=== PATIENT | female | born 1960 | race Caucasian/White ===

== ENCOUNTER 2023-10-23 13:36 | Outpatient (AMB) | payer BC, SELFPAY ==
--- NOTE | 2023-10-23 13:37 | A.SPINEOV_ITS ---
Intake Visit Reasons: lower back pain Intake Note: Ms. Aragon is here today c/o of low back pain. Senior Dot Net Developer Required: No Assessment & Plan Assessment & Plan (1) Lumbar radiculopathy: Code(s): M54.16 - Radiculopathy, lumbar region Category: Medical Plan Dear AHMET Rabago, Thank you for referring Srinivasan to our office today. She is a pleasant 63-year-old female who comes in today with a chief complaint of low back pain with shooting pains into her right lower extremity. She states that these symptoms have been ongoing since March of 2023 without any inciting incident she is able to identify. When describing her right-sided shooting pains she runs her hand over her posterior buttocks down the lateral aspect of her tibialis into the top of her foot. She states that the pain is not always present but is more so ?waxing and waning.? She feels that sitting exacerbates her pain and standing/walking helps to alleviate her pain. She does feel as though this pain is worsening, and states it affects her lower half of her leg and foot more than it did previously. She reports associated symptoms of numbness/tingling/burning that accompany her shooting pains. She reports some pain limiting activity and states that she finds herself sitting around her home more as she does not want to remain active and risk causing more pain to herself. She has also reduced the amount she is driving. She feels she has at the point where she is completely miserable and is pain all throughout the day. She feels she can not live like this any longer and need some kind of intervention in order to resolve her symptoms. PMH: Reconstructive breast surgery. No other disclosed medical history. Social hx: Patient does not smoke, reports no substance use. Medications: Recently started on Percocet (short course) by primary care physician for pain. Allergies: NKDA. Physical exam: The patient has 4/5 strength with right-sided dorsiflexion, the rest of her strength is 5/5 intact. She reports no constant sensational deficits. Her reflexes are 2+ intact diffusely. She is able to rise from a seated position without assistance of a chair, in ambulates relatively well with only a very slight antalgic gait favoring the left side. Imaging review: MRI of the lumbar spine completed at [facility] shows a synovial cyst at L4-5 causing effacement of the right exiting L5 nerve root, with some central canal involvement. Impression: Srinivasan is a pleasant 63-year-old female who comes in today with a chief complaint of low back pain with right lower extremity shooting pains. These are accompanied by numbness/tingling/burning. She reports that this began without inciting incident in March of 2023. Overall, she states that she is ?miserable? and needs to have something done in order to fix this issue. Her symptoms are in a classic right-sided L5 nerve root distribution. I discussed the possibility of a right-sided L5 synovial cyst resection, and extensively explained what a surgery such as this would entail. She was informed that I will review this case with the attending neurosurgeon Dr. Vogel to see if there any interventions he is willing to offer her. I will call her back after Dr. Vogel has returned from vacation I am able to review some cases with him. She understands and agrees to this plan. Thank you for allowing us to care for your patient. The total time spent with this visit with this patient was 45 minutes reviewing history, physical exam, MRI imaging review, and implementation of treatment plan or further diagnostic testing Cesar Vogel MD,PhD [facility] Coding Level of Care Code New Pt Level 4 (46749) Diagnoses Lumbar radiculopathy M54.16
== END 2023-10-23 14:39 | disposition home or self-care (01) ==
PROVIDERS: PCP Physician Assistant; Referring Provider Physician Assistant; Visit Provider Physician Assistant
DX: M54.16 Radiculopathy, lumbar region (principal)
CPT/HCPCS: 99204

== ENCOUNTER → 2023-10-23 13:36 | Outpatient (BNVA) | payer BC, SELFPAY | PROVIDERS: PCP Physician Assistant; Visit Provider Physician Assistant ==

== ENCOUNTER 2023-12-04 09:08 | Day surgery (SDC) | payer BC, SELFPAY ==
[2023-11-26 12:12] VITALS: BMI 29.5
--- NOTE | 2023-12-03 08:45 | P.CONAN_ITS ---
Documented by User: Jenifer Tran NP 12/03/23 08:50 HPI - Anesthesia Eval Consult details Narrative: 63yo F for L4-5 Decompression and L5 Synovial Cyst Resection Medically optimized per PCP Follows [facility] Cardiology for htn. Last office visit 07/2023, stable for one year f/u [facility] Active Problems Active Problems: All Active Problems Lumbar radiculopathy (Acute) Past Medical History Medical History (Updated 11/26/23 @ 11:55 by Ina Mix RN) Hx of radiation therapy Breast cancer Back pain Diverticulosis of jejunum without diverticulitis Migraine Anxiety and depression Breast lump in female Breast neoplasm Thyroid nodule Overweight HTN (hypertension) Hypokalemia Surgical History Surgical History (Updated 11/26/23 @ 11:57 by Ina Mix RN) History of facelift History of rhinoplasty H/O colonoscopy History of lumpectomy of right breast Hx of hysterectomy Hx of breast reconstruction Social History Social History Are you a primary career professional to a significant other at home: No Do you presently have visiting nurse or other home services: No Patient Tobacco Use Status: Never used Tobacco Use of substances other than those prescribed or required for medical reasons: No Have you been hit, kicked, punched, or otherwise hurt by someone within the past year? If so, by whom?: No Are you DNR?: No Advance Directives: No Advance Directives Information Provided: Yes Advance Directives on File: No Recently lost weight without trying: No Eating poorly because of decreased appetite: No Nutrition Risks: No Nutritional Risk Patient : No : No Poor oral hygiene: Yes (upper and lower bridge) Meds Allergies Allergy/AdvReac Type Severity Reaction Status Date / Time No Known Allergies Allergy Verified 11/26/23 09:11 Home Medications ?Medication ?Instructions ?Recorded ?Confirmed ?Last Taken ?Type ascorbic acid (vitamin C) 250 mg 750 mg PO DAILY 11/26/23 11/26/23 Unknown History chewable tablet cyclobenzaprine 5 mg tablet 5 mg PO Q4-8H PRN muscle spasm 11/26/23 11/26/23 Unknown History ibuprofen 600 mg tablet 600 mg PO QID 11/26/23 11/26/23 Unknown History lisinopril 30 mg tablet 30 mg PO DAILY 11/26/23 11/26/23 Unknown History lorazepam 0.5 mg tablet 0.5 mg PO Q8H PRN anxiety 11/26/23 11/26/23 Unknown History sumatriptan succinate 100 mg tablet 100 mg PO DIRECTED 11/26/23 11/26/23 Unknown History tramadol 50 mg tablet 50 mg PO BID PRN Pain 11/26/23 11/26/23 Unknown History Exam Height,Weight and Vital Signs: Height 5 ft 5 in Weight 80.286 kg Narrative Narrative: EKG 11/2023 NSR per clearance note ECHO 2021 1. LV size is nml 2. LV wall thickness is nml 3. Overall LV sys function is nml with EF 60-65% 4. Diastolic filling pattern is nml 5. No evidence of WMA 6. LA size is upper limits of nml 7. RV sys function is nml 8. No 9. Mild MR 10. No pulmo htn 11. No change from 2019 Assessment and Plan Assessment Anesthesia Assessment: Chart Reviewed Documented by User: Satya Phelps MD 12/04/23 12:32 [facility] Past Medical History Medical History (Updated 11/26/23 @ 11:55 by Ina Mix, RN) Hx of radiation therapy Breast cancer Back pain Diverticulosis of jejunum without diverticulitis Migraine Anxiety and depression Breast lump in female Breast neoplasm Thyroid nodule Overweight HTN (hypertension) Hypokalemia Cognitive capacity: o Family History Family history of problems with anesthesia: No Surgical History Surgical History (Updated 11/26/23 @ 11:57 by Ina Mix, RN) History of facelift History of rhinoplasty H/O colonoscopy History of lumpectomy of right breast Hx of hysterectomy Hx of breast reconstruction History of Problems with Anesthesia: Yes (PONV) Social History Social History Are you a primary career professional to a significant other at home: No Do you presently have visiting nurse or other home services: No Patient Tobacco Use Status: Never used Tobacco Use of substances other than those prescribed or required for medical reasons: No Have you been hit, kicked, punched, or otherwise hurt by someone within the past year? If so, by whom?: No Are you DNR?: No Advance Directives: No Advance Directives Information Provided: Yes Advance Directives on File: No Recently lost weight without trying: No Eating poorly because of decreased appetite: No Nutrition Risks: No Nutritional Risk Patient : No : No Poor oral hygiene: Yes (upper and lower bridge) Meds Allergies Allergy/AdvReac Type Severity Reaction Status Date / Time No Known Allergies Allergy Verified 11/26/23 09:11 Home Medications ?Medication ?Instructions ?Recorded ?Confirmed ?Last Taken ?Type ascorbic acid (vitamin C) 250 mg 750 mg PO DAILY 11/26/23 11/26/23 Unknown History chewable tablet cyclobenzaprine 5 mg tablet 5 mg PO Q4-8H PRN muscle spasm 11/26/23 11/26/23 Unknown History ibuprofen 600 mg tablet 600 mg PO QID 11/26/23 11/26/23 Unknown History lisinopril 30 mg tablet 30 mg PO DAILY 11/26/23 11/26/23 Unknown History lorazepam 0.5 mg tablet 0.5 mg PO Q8H PRN anxiety 11/26/23 11/26/23 Unknown History sumatriptan succinate 100 mg tablet 100 mg PO DIRECTED 11/26/23 11/26/23 Unknown History tramadol 50 mg tablet 50 mg PO BID PRN Pain 11/26/23 11/26/23 Unknown History Exam Airway Mallampati Class: I TM Dist: <=3cm Neck ROM: Full Loose/Missing/Broken Teeth: No Heart: ok Lungs: ok Other: Having severe sciatic pain now. I gave her Dilaudid 1mg IVP at 1226 w excellent relief. Assessment and Plan Assessment Anesthesia Assessment: Anesthesia Plan Discussed Final Anesthetic Review Family History of Problems with Anesthesia: No History of Problems with Anesthesia: Yes (PONV) NPO: Yes ASA Class: II Final Preanesthetic Review: No Changes in Pt Med Stat, Meds/Allgs Chart Reviewed, Consent Obtained/Reviewed and Anes Risks/Benef Reviewed Patient Risk: Intermediate Procedure Risk: Intermediate Anesthetic Plan Anesthetic Plan: GA and Agree w/ Assess. and Plan Disposition: Standard PACU
[2023-12-04] VITALS (9 sets, daily range): BP systolic 103–125; BP diastolic 54–89; PULSE 61–84; RESP 14–16; TEMP 36.1–36.6; O2SAT 92–100; BMI 29.1
--- NOTE | ~2023-12-04 | FL_ITS ---
EXAMINATION: XR FLUOROSCOPY WITH IMAGES CLINICAL INFORMATION: Right L4-5 decompression. Radiculopathy. COMPARISON: None available. TECHNIQUE: Fluoroscopy provided to: Dr. Vogel Fluoroscopy time: 0.0 minutes DAP: 0.246 Gycm2 Images: 2 FINDINGS: 2 coned-down spot images lower lateral lumbar spine demonstrate needle localizer at L4-5 facet level, and operative probe in place overlying right lamina same level. FL/FL guidance in OR IMPRESSION: Fluoroscopic guidance. Please refer to the full operative report for details. Electronically signed by: Yasmany Lopez MD 01/29/2024 03:39 PM EDT
--- NOTE | 2023-12-04 07:39 | P.DS_ITS ---
DS: Providers Provider Date of Service: 12/04/23 Date of discharge: 12/04/23 Primary care physician: Simran Dominguez MD Admitting clinician: Te Vogel DS: Diagnosis Discharge Diagnosis (1) Lumbar radiculopathy: Status: Acute DS: Summary Time Attestation Discharge Coordination Time (in mins): 5 Quality: Safe Use of Opioids Does Pt have an Active Cancer Diagnosis on the Problem List?: No Quality: Stroke Does the patient have a stroke diagnosis?: No Physical Exam Vital Signs: Vital Signs: BMI result Body Mass Index 29.5 Discharge Plan Discharge Patient Disposition: Home, Self-Care Referrals: Simran Dominguez MD [Primary Care Provider] - 1 Week Discharge Medications: New docusate sodium [Colace] 100 mg capsule 100 mg PO BID Qty: 20 0RF oxycodone 5 mg tablet 5 mg PO Q4H PRN (Reason: pain) Qty: 20 0RF Rx Instructions: Partial Fill upon patient request. Continued sumatriptan succinate 100 mg tablet 100 mg PO DIRECTED lorazepam 0.5 mg tablet 0.5 mg PO Q8H PRN (Reason: anxiety) ascorbic acid (vitamin C) 250 mg Tablet,Chewable 750 mg PO DAILY lisinopril 30 mg tablet 30 mg PO DAILY ibuprofen 600 mg tablet 600 mg PO QID cyclobenzaprine 5 mg tablet 5 mg PO Q4-8H PRN (Reason: muscle spasm) tramadol 50 mg Tablet 50 mg PO BID PRN (Reason: Pain) Discharge Orders: Discharge Order (Routine); Ordered 12/04/23 Ordered By: Shaheen Agee Diet: Advance to usual diet Activity on Discharge: As tolerated Activity Restrictions/Additional Instructions: After your spinal surgery we ask you to observe the following restr ictions/guidelines: Activity: It is normal to feel some discomfort as you increase your activity, but that will improve with time. We ask you avoid heavy lifting or acitivities that cause pain. As a general rule, 8lbs is a safe limit for lifting right after surgery. Walk as much as you feel comfortable but not to exhaustion. You will feel extra tired the first few days after surgery. Stay well hydrated. It is OK to walk up and down stairs You may return to driving when you are off narcotics (such as vicodin, oxycodone, dilaudid, etc), and you are back to normal functional capacity. If you have any concerns please check with office before driving. Return to work is specific to each patient and each surgery, so please speak with your doctor/PA at first follow up. Please bring paperwork such as FMLA at that time if you need it filled out. Medications: For optimum pain control, it is best to start with a combination of 500 mg of Tylenol every 4 hours with 600 mg of Motrin every 8 hours, and use narcotics as needed in between for breakthrough pain. We will give you a short supply of narcotics after surgery (usually one weeks worth). If you need more please call the office but do not use more than prescribed. You will need to give our office 48 hours notice if you need narcotics refilled and we do not fill narcotics on weekends or evenings. If you are on a narcotic, it is a good idea to take a stool softener such as colace or senna to avoid constipation If you take blood thinner such as aspirin, Plavix, Coumadin, Effient, Eliquis etc for conditions such as Afib, DVT, Pulmonary embolus, coronary disease, stents etc please speak with your surgeon about specific details as to when you can resume these medications. You can resume NSAIDs on post op day 1 (eg: Motrin, Naproxen, etc). Follow up: Please call the office, , after surgery to arrange a 3 week follow up for wound check. Wound Care: You may remove your dressing on the first day after surgery. ?You may ?leave open to air. Please do not remove the steri strips underneath. they will fall off on their own in one week. IT IS NORMAL FOR THE WOUND TO OOZE OR BE BLOODY FOR A FEW DAYS AFTER SURGERY. ?IF THIS HAPPENS JUST PLACE NEW DRESSING OVER IT TO AVOID STAINING CLOTHES. You may shower on post op day # 1 We ask that you do not let the water soak the wound. If it does get wet, just towel dry lightly. Please do not scrub your incision or place any type of chemical/ointment on the wound. No tub baths, pools or jacuzzis for one month. If you have any leaking or redness from your wound, or fevers, please call office Print Language: Danish
[2023-12-04 09:45] LABS: Hematocrit 41.7 % (37.0-47.0); Hemoglobin 13.9 g/dl (12.0-16.0); Mean Corpuscular HGB Conc 33.3 g/dl (31.0-35.0); Mean Corpuscular Hemoglobin 29.9 pg (27.0-33.0); Mean Corpuscular Volume 89.7 fL (80.0-98.0); Mean Platelet Volume 9.8 fL (9.4-12.3); Platelet Count 235 X10*3/uL (160-400); Red Blood Count 4.65 X10*6/uL (4.20-5.50); Red Cell Distribution Width 12.7 % (11.0-16.0); White Blood Count 6.1 X10*3/uL (4.8-10.8)
[2023-12-04] MEDS: Lactated Ringers 1,000 ML 100 ML IVCONT (09:47)
[2023-12-04] MEDS: methocarbamoL 750 MG TABLET PO (09:51)
[2023-12-04] MEDS: Gabapentin 300 MG CAPSULE PO (09:51)
[2023-12-04 09:58] LABS: Anion Gap 14 (12-20); Blood Urea Nitrogen 18 mg/dL (9-16); Calcium 10.7 mg/dL (8.4-10.2); Carbon Dioxide 26 mmol/L (22-29); Chloride 106 mmol/L (96-108); Creatinine Clr Calc Pharmacy 89.6; Estimated Glomerular Filt Rate > 60; Glucose Fasting 108 mg/dL (60-99); Potassium 4.4 mmol/L (3.3-5.1); Sodium 142 mmol/L (135-145)
[2023-12-04] MEDS: HYDROmorphone HCl 1 MG/ML SYRINGE IVPUSH (12:36)
[2023-12-04] MEDS: Scopolamine 1.5 MG PATCH.TD.3 EAR-BEHIND (12:48)
--- NOTE | 2023-12-04 13:39 | MHC.SHP ---
Pre-Procedural Eval Section A - 24 Hr Update-Section A only Date of Service: 12/04/23 The patient is an INPATIENT: No Section B - Complete if H&P > 30 days Chief Complaint: Radiculopathy, lumbar region Details of Present Illness: Right lumbar radiculopathy Allergies: Allergies Allergy/AdvReac Type Severity Reaction Status Date / Time No Known Allergies Allergy Verified 11/26/23 09:11 Review of Systems Sugical H&P ROS: Negative: Constitution, Cardiovascular, Respiratory, Neurological, Psychiatric, Hem-Onc, Allergic/Immunologic, Gastrointestinal, Genitourinary, Musculoskeletal, Integumentary, Endocrine and Eyes/Ears/Nose/Throat Exam Surgical H&P Exam: Normal: HEENT, Normal: Heart, Normal: Lungs, Normal: Extremities, Normal: Abdomen and Normal: Skin and Significant Findings: Neurological (Mild right footdrop) Plan Diagnosis/Plan: Unchanged I have reviewed the history and physical and performed a pertinent physical examination on my patient. No changes have occurred unless specified. Right L4-5 laminotomy with resection of synovial cyst Time Spent With Patient Time: Total time managing care of this patient today _ 10 ___ minutes.
--- NOTE | 2023-12-04 14:59 | W.PM.OPN ---
Operative Note Operative Note Date of Service: 12/04/23 Narrative: Preoperative Diagnosis: Extradural benign mass (synovial cyst) compressing the right L5 nerve root Operation: L4-5 Laminotomy for removal of extradural benign mass with use of microscope Consent Informed Consent was obtained for this operation. I have explained the nature, purpose and benefits of the operation. I have discussed the risks and benefit of the operation including possible complications or adverse events with patient/family. Alternative(s) were discussed with the patient with their relative benefits and risks as well as the consequences of not accepting the operation were included in obtaining consent. Surgeon: MAGDI BOYD MD, PHD Procedure Assisted By: Shaheen ashraf Description of Procedure This patient is suffering from severe right L5 lumbar radiculopathy due to a extradural benign mass compressing the L5 nerve root. The patient was offered a removal of the mass to decompress the nervous structure. The procedure complications were explained. The patient was consented. The patient was brought to the operating room and endotracheally intubated. The patient was turned in prone position on the Taye frame. Prep and drape was done followed by timeout. Physician commercial real estate assistant provided access. A mid lumbar incision was made followed by release of the paravertebral muscle on the right side to expose the L4-5 lamina and facet joint. An intraoperative x-ray was obtained to confirm the correct level. The microscope was brought in. I took over the procedure. The high-speed drill was used to do a L4-5 laminotomy. The flavum ligament was opened to expose the underlying thecal sac and start of the [] nerve root. A large cystic mass was identified and obscured the L5 nerve root. The mass was dissected from the L5 nerve root. When the mass was completely relieved from the L5 nerve root I removed it in toto. Most likely we were dealing with a synovial cyst. A long the nerve root could be easily passed, a sign of adequate decompression of the nerve root . The microscope was removed. Hemostasis was done. Incision was closed in 2 layers. Steri-Strips were used to approximate incision. An OpSite with Tegaderm was used to cover the incision. All sponge needle counts were correct. Patient was extubated and transported in stable is to recovery room. Anesthesia: General Estimated Blood Loss (ml): Minimal Duration of Surgery: Under 60 Minutes Postoperative Plan: Discharge to home
[2023-12-04] MEDS: oxyCODONE HCl Immed Release 5 MG TABLET PO (15:32)
== END 2023-12-04 16:25 | disposition home or self-care (01) ==
LOC: HO.SSS 09:08
PROVIDERS: Nurse Practitioner; PCP Internal Medicine; Visit Provider Neurological Surgery
PROC: (CPT 63267; principal; 2023-12-04 13:20)
DX: M54.16 Radiculopathy, lumbar region (principal); M71.38 Other bursal cyst, other site
CPT/HCPCS: 63267; 36415; 80048; 85027; J0131; J0690; J1100; J1170; J1885; J2405; J2704; J3010

== ENCOUNTER → 2023-12-04 09:08 | Outpatient (BNV) | payer BC, SELFPAY | PROVIDERS: PCP Internal Medicine; Visit Provider Neurological Surgery | DX: M71.38 Other bursal cyst, other site (principal); M54.16 Radiculopathy, lumbar region | CPT/HCPCS: 63267; 99499 ==

== ENCOUNTER 2023-12-25 13:18 | Outpatient (AMB) | payer BC, SELFPAY ==
--- NOTE | 2023-12-25 13:39 | HO.SPINEOV ---
Intake Visit Reasons: 1st post op Intake Note: Ms. Aragon is here today for her 1st post-op visit. Technical Staff Assistant Required: No Allergies No Known Allergies Allergy (Verified 11/26/23 09:11) Assessment & Plan Assessment & Plan (1) Lumbar radiculopathy: Code(s): M54.16 - Radiculopathy, lumbar region Category: Medical Plan Mrs Aragon is 3 weeks out from her synovial cyst removal for lumbar radiculopathy. She is doing great. She reports being 98% better. Still getting a little pain in the buttock when she turns over at night or if she coughs. I told her this can be normal as the nerve was severely inflamed for so long that it may take awhile for to finally heal. Her wound is healed up beautifully. We discussed activity guidelines, restrictions and expectations after lumbar decompression. I would like to see her back in 6 weeks for a final postoperative visit. Shaheen Vogel MD, PhD [facility] Coding Level of Care Code Global (10949) Diagnoses Lumbar radiculopathy M54.16
== END 2023-12-25 14:02 | disposition home or self-care (01) ==
LOC: HO.HNS 13:18
PROVIDERS: PCP Internal Medicine; Visit Provider Physician Assistant
DX: M54.16 Radiculopathy, lumbar region (principal)
CPT/HCPCS: 99024

== ENCOUNTER → 2023-12-25 13:18 | Outpatient (BNVA) | payer BC, SELFPAY | PROVIDERS: PCP Internal Medicine; Visit Provider Physician Assistant ==

== ENCOUNTER 2024-01-15 12:55 | Outpatient (AMB) | payer BC, SELFPAY ==
--- NOTE | 2024-01-15 13:03 | HO.SPINEOV ---
Intake Visit Reasons: 2nd post op Intake Note: Mr. Aragon is here today for her 2nd post-op. Spanish Literature Professor Required: No Allergies No Known Allergies Allergy (Verified 11/26/23 09:11) Assessment & Plan Assessment & Plan (1) Lumbar radiculopathy: Code(s): M54.16 - Radiculopathy, lumbar region Category: Medical Plan Mrs Aragon is from her synovial cyst removal. She is doing excellent. More less she is pain-free and very happy with the surgery. We discussed activity guidelines, restrictions and expectations after synovial cyst removal. She can see us back now on an as-needed basis. Shaheen Vogel MD, PhD [facility] Coding Level of Care Code Global (61267) Diagnoses Lumbar radiculopathy M54.16
== END 2024-01-15 13:08 | disposition home or self-care (01) ==
PROVIDERS: PCP Internal Medicine; Visit Provider Physician Assistant
DX: M54.16 Radiculopathy, lumbar region (principal)
CPT/HCPCS: 99024

== ENCOUNTER → 2024-01-15 12:55 | Outpatient (BNVA) | payer BC, SELFPAY | PROVIDERS: PCP Internal Medicine; Visit Provider Physician Assistant ==

== ENCOUNTER 2024-10-18 14:36 | Outpatient (REF) | payer BC, SELFPAY ==
--- NOTE | ~2024-10-18 | XR_ITS ---
Exam: 4 view L-spine INDICATION: Lumbar radiculopathy. TECHNIQUE: AP, and lateral: Flexion, neutral, and extension view x-rays of the lumbar spine. Prior: None FINDINGS: There are 5 nonrib-bearing lumbar segments. SI joints are is symmetrical and unremarkable. L1-2: Mild disc space narrowing. Stable. L2-3: Moderate disc space narrowing and subtle retrolisthesis. Stable L3-4: Mild disc space narrowing and subtle retrolisthesis, stable. L4-5: Subtle anterolisthesis is stable. There is mild disc space narrowing. There are facet osteophytes and sclerosis. L5-S1: There is mild disc space narrowing and facet sclerosis with osteophytes. XR/XR lumbar spine 4V min IMPRESSION: Degenerative disc disease and facet arthropathy, detailed above. Electronically signed by: Sony Seo MD 10/18/2024 05:13 PM EDT
== END 2024-10-18 14:37 | disposition home or self-care (01) ==
LOC: HO.HOSX 14:36
PROVIDERS: PCP Internal Medicine; Visit Provider Physician Assistant
DX: M51.16 Intervertebral disc disorders with radiculopathy, lumbar region (principal)
CPT/HCPCS: 72110; 99212

== ENCOUNTER 2024-10-18 14:36 | Outpatient (AMB) | payer MEDICARE, SELFPAY ==
--- NOTE | 2024-10-18 14:51 | HO.SPINEOV ---
Intake Visit Reasons: sciatica pain after sx Intake Note: Ms. Aragon is here today c/o sciatica pain after surgery. Bi Data Architect Required: No Allergies No Known Allergies Allergy (Verified 10/18/24 14:51) Assessment & Plan Assessment & Plan (1) Lumbar radiculopathy: Code(s): M54.16 - Radiculopathy, lumbar region Category: Medical Plan Mrs Aragon underwent a right L4-5 hemilaminotomy with synovial cyst resection last year with excellent results. Unfortunately sometime around May she started to notice a right buttock pain that would radiate down her posterior thigh. It seems similar to her preoperative pain but she just tried to work her way through it. She continued to do some exercising, did core exercises and in general just tried to see if tincture of time would take it away but unfortunately it has only gotten worse. She gets numbness of her right buttock as well. She has taken [id number] anti-inflammatories, Tylenol etc. with no relief. The pain is particularly bad if she is sitting for any length of time and when she rolls over at night. On exam her strength is full. Her wound is healed up beautifully. I am going to order a standing x-ray with flexion-extension views to see if there is any signs of instability which we do see in patients who have had synovial cyst. I will also order another MRI to see if there is any recurrence of the cyst or an alternate herniated disc that might explain the pain. Total amount of time spent in this visit was 20 minutes in discussion of symptoms, ordering imaging and subsequent plan of care Shaheen Vogel MD,PhD [facility] Orders: Orders XR lumbar spine 4V min Today M54.16 - Radiculopathy, lumbar region MR lumbar spine wo/w con Today M54.16 - Radiculopathy, lumbar region Coding Level of Care Code Est Pt Level 3 (65932) Diagnoses Lumbar radiculopathy M54.16
--- OUTSIDE RECORDS SUMMARY | 2024-10-18 16:18 | XMS_ITS | Encounter Summary ---
Author Organization [facility] [place] [address] Care Team Providers Care Assistant Film Editor Name Role Phone Simran Dominguez MD Primary Care Prov ider Encounter Details Date Type Department Care Team ([facility] st Contact Info) Description 10/14/2024 Telephone Adult Medicine [facility] [address] [place] [phone] Shaheen Sequeira PA [address] [place] [address] Social History Tobacco Use Types Packs/Day Years Used Date Smoking Tobacco: Former Smokeless Tobacco: Never Alcohol Use Standard Drinks/Week Comments Yes 0 (1 standard drink = 0.6 oz pur e alcohol) Comments Unknown Sex and Gender Information Value Date Recorded Sex Assigned at Not on file Legal Sex Female 3:26 PM EST Gender Identity Not on file Sexual Orientation Not on file documented as of this encounter Progress Notes * Jo Redmond [place] - 10/14/2024 12:07 PM EDT Notes placed on provider's desk * AHMET Guzman - 10/14/2024 11:39 AM EDT Please request mamm[facility] reports [facility]. Thanks documented in this encounter Plan of Treatment Upcoming Encounters Date Type Department Care Team (Late st Contact Info) Description 10/19/2024 8:45 AM EDT Hospital Encounter Ultrasound - [place] [address] [place] [phone] 03/08/2025 11:15 AM EST Appointment Bone Density - [address] [phone] 04/15/2025 9:45 AM EST Office Visit Adult Medicine - [place] [address] [place] [phone] Shaheen Sequeira PA [address] [place], [place] documented as of this encounter Visit Diagnoses Not on filedocumented in this encounter Care Teams Assistant Film Editor Relationship Specialty Start Date End Date Simran Dominguez MD [address] [place], [place] PCP - General 11/27/09 documented as of this encounter
== END 2024-10-18 15:46 | disposition home or self-care (01) ==
PROVIDERS: PCP Internal Medicine; Visit Provider Physician Assistant
DX: M54.16 Radiculopathy, lumbar region (principal)
CPT/HCPCS: 99213

== ENCOUNTER → 2024-10-18 15:32 | Outpatient (BNV) | payer BC, SELFPAY | PROVIDERS: PCP Internal Medicine; Visit Provider Radiology Diagnostic Radiology | DX: M51.369 Other intervertebral disc degeneration, lumbar region without mention of lumbar back pain or lower extremity pain (principal); M47.816 Spondylosis without myelopathy or radiculopathy, lumbar region | CPT/HCPCS: 72110 ==

== ENCOUNTER → 2024-11-09 10:52 | Outpatient (BNV) | payer MEDICARE, SELFPAY | PROVIDERS: PCP Internal Medicine; Visit Provider Radiology Diagnostic Radiology | DX: M54.16 Radiculopathy, lumbar region (principal) | CPT/HCPCS: 72158 ==

== ENCOUNTER 2024-11-09 10:55 | Outpatient (REF) | payer MEDICARE, SELFPAY ==
--- NOTE | ~2024-11-09 | MR_ITS ---
EXAM: MRI lumbar spine without and with IV contrast TECHNIQUE: Multiplanar multisequence imaging was performed through the lumbar spine without and with contrast. INDICATION: M54.16 - Radiculopathy, lumbar region CONTRAST: 7.5 mL Gadavist PRIOR: X-ray October 18, 2024 FINDINGS: 5 non-rib bearing lumbar segments are present on x-ray. There are no marrow replacing lesions. There is subtle retrolisthesis at L2-3 and L3-4 and subtle anterolisthesis at L4-5. Paraspinal soft tissues and major vascular structures are unremarkable. The termination of conus medullaris is within normal limits at the level of L1. Without Contrast: T12-L1: There is no disc bulge, herniation, spinal stenosis, or foraminal narrowing. L1-L2: There is no disc bulge, herniation, spinal stenosis, or foraminal narrowing. L2-L3: There is disc desiccation and mild loss disc height and circumferential broad-based disc bulge. There is mild facet arthropathy. There is no spinal stenosis or foraminal narrowing. L3-L4: There is disc desiccation and mild broad-based disc bulge. There is mild facet degeneration with ligamentum flavum thickening resulting in very mild spinal stenosis. There is minimal foraminal narrowing. L4-L5: There appear to be changes related to right hemilaminectomy. Circumferential broad-based disc bulge contacts the thecal sac. There is moderate to severe facet arthropathy with bilateral facet joint effusions. There is edema with enhancement in the adjacent soft tissues, right greater than left. There is a multiloculated cystlike structure with peripheral enhancement medial to the left facet located in the posterior epidural space measuring 17 x 6 x 8 mm (CC by AP by transverse). There is also small synovial cyst posterior to the left facet. There is mild spinal stenosis. There is minimal narrowing of the left subarticular zone. Mild foraminal narrowing is greater on the right. L5-S1: There is no disc bulge, herniation, spinal stenosis, or foraminal narrowing. There is moderate facet arthropathy, greater on the left. With Contrast: There is scar/granulation tissue extending posteriorly from the interspinous space at L4-5 to the deep and superficial subcutaneous soft tissues with associated enhancement and micrometal artifact. Changes extend through the right lamina Enhancement is physiologic otherwise. MR/MR lumbar spine wo/w con IMPRESSION: Postoperative change at L4-5 after right hemilaminectomy. There is evidence of a bilateral facet joint effusions with synovitis and associated inflammatory changes in the paraspinal soft tissues, right greater than left. There is also a multiloculated cystic structure in the posterior left epidural space probably a synovial cyst related to the left facet, though a small abscess is not entirely ruled out. There are no cortical or marrow signal changes in the facets to suggest osteomyelitis. There is mild spinal stenosis and mild left lateral recess narrowing. Electronically signed by: Sony Seo MD 11/09/2024 12:18 PM EDT
--- OUTSIDE RECORDS SUMMARY | 2024-11-09 11:59 | XMS_ITS | Clinical Summary ---
Author Organization [facility] Address [address] [place] [address] Phone Care Team Providers Care Account Development Specialist Name Role Phone Simran Dominguez MD Primary Care Prov ider Allergies No known active allergies Medications ibuprofen (ADVIL,MOTRIN) 600 mg tablet TAKE 1 TABLET BY MOUTH FOUR TIMES DAILY FOR 5 DAYS 07/19/19 24 Active LORazepam (ATIVAN) 0.5 mg tablet Take 1 Tablet by mouth every 8 hours as needed for Anxiety for up to 30 days. 08/11/19 24 Active SUMAtriptan (IMITREX) 100 mg tablet TAKE 1 TABLET BY MOUTH NEEDED FOR MIGRAINES; MAY REPEAT AFTER 2 HOURS 12 tablet 08/12/19 25 Active lisinopriL (PRINIVIL,ZEST RIL) 30 mg tablet Take 1 tablet (30 mg total) by mouth 1 (one) time each day. 90 tablet 1 10/15/19 25 Active cyclobenzaprin e (FLEXERIL) 5 mg tabletIndicati ons:History of back surgery Take 1 tablet (5 mg total) by mouth 3 (three) times a day if needed for muscle spasms. 30 tablet 3 10/15/19 25 Active cyclobenzaprin e (FLEXERIL) 5 mg tablet Take 1 Tablet by mouth every 8 hours as needed for Muscle spasms (sciatica). 10/10/19 24 025 Discontinued(Re order) methocarbamoL (ROBAXIN) 500 mg tablet Take 1 tablet (500 mg total) by mouth 4 (four) times a day. 025 Discontinued lisinopriL (PRINIVIL,ZEST RIL) 30 mg tablet TAKE 1 TABLET BY MOUTH DAILY 90 tablet 1 07/01/19 25 025 Discontinued(Re order) Active Problems Problem Noted Date Diagnosed Date History of breast cancer 10/14/2024 History of back surgery 10/14/2024 Hyperlipidemia 10/14/2024 Diverticulosis of jejunum without diverticulitis 05/19/2024 Hypertension 05/19/2024 Migraine headache 05/19/2024 Essential hypertension 10/30/2020 Hypokalemia 10/30/2020 Overweight (BMI 25.0-29.9) 05/23/2020 Thyroid nodule 03/19/2019 Overview (05/19/2024): Small, ultrasound 03/19/2019. 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 Anxiety and depression 02/17/2018 Breast lump in female 02/17/2018 Encounters Date Type Department Care Team Description 11/08/2024 Telephone Adult Medicine [address] [phone] Simran Lance MD Test Request 10/19/2024 8:34 AM EDT - 10/19/2024 11:59 PM EDT Hospital Encounter Ultrasound - [address] [phone] Thyroid nodule Discharge Disposition: Home or Self Care 10/14/2024 11:15 AM EDT Office Visit Adult Medicine [address] [phone] Shaheen Sequeira PA Essential hypertension (Primary Dx); Thyroid nodule; Hyperlipidemia, unspecified hyperlipidemia type; History of back surgery; History of breast cancer; Disorders of endocrine glands in diseases classified elsewhere; Screening for osteoporosis; Asymptomatic menopausal state 10/14/2024 Telephone Adult [address] [phone] Shaheen Sequeira PA from Last 3 Months Immunizations Name Administration Dates Next Due Hepatitis B (Kzudqmj-X-Ymfxj , Recombivax HB-Adult) 19yo and older 07/24/2022,06/26/2022 Influenza Quadravalent, MDCK , 0.5ml, preservative free (Flucelvax) 6mo and older 01/10/2023,01/06/2020 Influenza trivalent, 0.5mL, preservative free (Fluarix; FluLaval; Fluzone) ages 6mo and older (Afluria) 3 years and older 01/03/2019,01/11/2018,02/24/2017,2014 Influenza trivalent, with preservative (Fluzone; Afluria) 6mo and older 01/26/2014,01/12/2013 Influenza, Unspecified 02/24/2017 Moderna SARS-CoV-2 COVID-19, mRNA, LNP-S, preservative free 06/11/2021 Tdap Tetanus diptheria acell ular pertussis (Boostrix; Adacel) 7yo and older 10/30/2020,01/01/2010 Zoster recombinant (Shingrix ) 19yo and older 08/27/2022 Surgical History Surgery Date Site/Laterality Comments COLONOSCOPY 04/16/11 PROCEDURE: HISTORICAL COLONOSCOPY; COMMENT: tics; repeat in ten yrs HYSTERECTOMY 2011 PROCEDURE: HISTORICAL HYSTERECTOMY BREAST LUMPECTOMY Right PROCEDURE: HISTORICAL BREAST LUMPECTOMY; COMMENT: [facility]. Right lumpectomy and axillary node dissection OTHER SURGICAL HISTORY 12/04/2023 Dr. Vogel. 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 Repeat ordered 08/23/2019 Family History Medical History Relation Name Comments Alcohol abuse Brother 1 at 30 Alcohol abuse Brother 2 Depression Brother 3 Alcohol abuse Father at 40 Brain Aneurysm Maternal Grandfather 59 Dementia Maternal Grandmother Stroke Maternal Grandmother 80's Asthma Mother Hypertension Mother No Known Problems Paternal Grandfather Diabetes Paternal Grandmother Coronary artery disease Sister 1 Hypertension Sister 1 Other: unknown Sister 2 some form of blood disease resolved after transfusions, ? ITP Relation Name Status Comments Brother 1 Brother 2 Alive Brother 3 Alive Father Maternal Grandfather Maternal Grandmother Mother Alive Paternal Grandfather Paternal Grandmother Sister 1 Alive Sister 2 Alive Social History Tobacco Use Types Packs/Day Years Used Date Smoking Tobacco: Former Smokeless Tobacco: Never Tobacco Cessation:Counseling Given: Not Answered Alcohol Use Standard Drinks/Week Comments Yes 0 (1 standard drink = 0.6 oz pur e alcohol) Comments Unknown Sex and Gender Information Value Date Recorded Sex Assigned at Not on file Legal Sex Female 3:26 PM EST Gender Identity Not on file Sexual Orientation Not on file Obstetrics History Last Filed Vital Signs Vital Sign Reading Time Taken Comments Blood Pressure 137/74 10/14/2024 11:26 AM EDT Pulse 77 10/14/2024 11:26 AM EDT Temperature - - Respiratory Rate - - Oxygen Saturation - - Inhaled Oxygen Concentration - - Weight 77.5 kg (170 lb 12.8 oz) 025 11:26 AM EDT Height 165.1 cm (5' 5 ) 10/14/2024 11:2 6 AM EDT Body Mass Index 28.42 10/14/2024 11:26 AM EDT Plan of Treatment Upcoming Encounters Date Type Department Care Team (Late st Contact Info) Description 11/11/2024 9:00 AM EDT Appointment Radiology Department - [address] [phone] 03/08/2025 11:15 AM EST Appointment Bone Density - [address] [phone] 04/15/2025 9:45 AM EST Office Visit Adult Medicine - [place] [address] [place] [phone] Shaheen Sequeira PA [address] [place] [address] Health Maintenance Due Date Last Done Comments Breast Cancer Screening 1960 Pneumococcal Vaccine: 50+ Years (1 of 2 - PCV) 10/06/1978 Depression Screening 04/13/2022 Medicare Annual Wellness Visit 04/13/2022 Osteoporosis Screening (Bone Density Screening) 04/13/2022 Social Influencers of Health Screening 04/13/2022 Hepatitis B Vaccines (3 of 3 - 19+ 3-dose series) 12/24/2022 07/24/2022, 06/26/2022 COVID-19 Vaccine ( season) 2024 06/11/2021, 03/20/2021, 07/09/2020, Additional history exists Falls Risk Assessment 10/06/2024 Influenza Vaccine (#1) 2025 , 01/12/2021, 01/06/2020, Additional history exists Hypertension/CHF/CAD Annual BMP Blood Test 10/18/2025 10/18/2024, 08/11/2023 Colorectal Cancer Screening: Colonoscopy 09/24/2026 09/25/2023 Cholesterol Screening (Lipid Panel) 10/18/2029 10/18/2024, 02/21/2022 DTaP,Tdap,and Td Vaccines (3 - Td or Tdap) 10/30/2030 10/30/2020, 01/01/2010 RSV Immunization Adult Patients (1 - 1-dose 75+ series) 10/06/2034 Hepatitis C Screening Completed 03/07/2015 Zoster Vaccines Completed 08/27/2022, 02/25/2022 HIB Vaccines Aged Out No longer eligi ble based on patient's age to complete this topic HPV Vaccines Aged Out No longer eligi ble based on patient's age to complete this topic Hepatitis A Vaccines Aged Out No long er eligible based on patient's age to complete this topic IPV Vaccines Aged Out No longer eligi ble based on patient's age to complete this topic MMR Vaccines Aged Out No longer eligi ble based on patient's age to complete this topic Meningococcal ACWY Vaccine Aged Out N o longer eligible based on patient's age to complete this topic Meningococcal B Vaccine Aged Out No l onger eligible based on patient's age to complete this topic RSV Immunization Patients Under 20 months Aged Out No longer eligible based on patient's age to complete this topic Varicella Vaccines Aged Out No longer eligible based on patient's age to complete this topic Procedures Procedure Name Priority Date/Time Associated Diagnosis Comments US HEAD NECK SOFT TISSUE Routine 10/19/2024 9:02 AM EDT Thyroid nodule CBC WITH AUTO DIFFERENTIAL Routine 10/18/2024 8:53 AM EDT History of back surgery Disorders of endocrine glands in diseases classified elsewhere THYROID STIMULATING HORMONE WITH REFLEX TO FREE T4 AND FREE T3 Routine 10/18/2024 8:53 AM EDT Thyroid nodule THYROID PEROXIDASE AND THYROGLOBULIN ANTIBODIES Routine 10/18/2024 8:53 AM EDT Thyroid nodule COMPREHENSIVE METABOLIC PANEL Routine 10/18/2024 8:53 AM EDT Essential hypertension History of breast cancer LIPID PANEL WITH REFLEX TO DIRECT LDL Routine 10/18/2024 8:53 AM EDT Hyperlipidemia, unspecified hyperlipidemia type CBC AND DIFFERENTIAL Routine 10/18/2024 8:53 AM EDT History of back surgery Disorders of endocrine glands in diseases classified elsewhere COLONOSCOPY Routine 09/25/2023 HEPATITIS C SCREENING Routine 03/07/2015 from Last 3 Months or Most Recently Relevant to Health Maintenance Results * US Head Neck Soft Tissue (10/19/2024 9:02 AM EDT) Anatomical Region Laterality Modality Head and Neck Radiographic Yue ging 10/19/2024 11:2 3 AM EDT Impressions 10/19/2024 11:31 AM EDT Minimal interval enlargement of the solitary left thyroid nodule which has suspicious features. Fine-needle aspiration is recommended. POS - [id number] -------- FINAL REPORT -------- Dictated By: Susy Maldonado Dictated Date: 10/19/2024 11:23 ET Assigned Physician: Susy Maldonado Reviewed and Electronically Signed By: Susy Maldonado Signed Date: 10/19/2024 11:31 ET Workstation ID: [id number] Transcribed By: Self Edit Transcribed Date: 10/19/2024 11:23 ET Narrative 10/19/2024 11:31 AM EDT EXAM: Thyroid ultrasound HISTORY: Follow-up thyroid nodule. COMPARISON: 05/21/2021 FINDINGS: Thyroid gland is not enlarged: right lobe measures 3.4 x 1.1 x 1.2 cm, left lobe measures 3.6 x 1.0 x 1.3 cm, and the isthmus measures 0.2 cm in thickness. Thyroid parenchyma is mildly heterogeneous as before without hypervascularity on color Doppler. 0.9 x 0.8 x 0.5 cm hypoechoic solid nodule in the left lower thyroid lobe has minimally enlarged compared with 0.7 x 0.6 x 0.4 cm previously. Margins are smooth, wider than tall, few echogenic foci. Procedure Note Susy Maldonado MD - 10/19/2024 EXAM: Thyroid ultrasound HISTORY: Follow-up thyroid nodule. COMPARISON: 05/21/2021 FINDINGS: Thyroid gland is not enlarged: right lobe measures 3.4 x 1.1 x 1.2 cm,left lobe measures 3.6 x 1.0 x 1.3 cm, and the isthmus measures 0.2 cm inthickness. Thyroid parenchyma is mildly heterogeneous as before withouthypervascularity on color Doppler. 0.9 x 0.8 x 0.5 cm hypoechoic solid nodule in the left lower thyroid lobehas minimally enlarged compared with 0.7 x 0.6 x 0.4 cm previously.Margins are smooth, wider than tall, few echogenic foci. IMPRESSION: Minimal interval enlargement of the solitary left thyroid nodule which hassuspicious features. Fine-needle aspiration is recommended. POS - [id number] -------- FINAL REPORT -------- Dictated By: Susy Maldonado Dictated Date: 10/19/2024 11:23 ET Assigned Physician: Susy Maldonado Reviewed and Electronically Signed By: Susy Maldonado Signed Date: 10/19/2024 11:31 ET Workstation ID: [id number] Transcribed By: Self Edit Transcribed Date: 10/19/2024 11:23 ET Shaheen LEO IMG US PROCEDURES Final Result * Thyroid stimulating hormone with reflex to free t4 and free t3 (10/18/2024 8:53 AM EDT) Pathologist [facility] TSH 2.49 0.40 - 4.00 mcIU/mL LAB CHEMISTRY METHOD 10/18/2024 3:51 PM EDT [facility] Blood Venous blood specimen / Unknown Venipuncture / Unknown 10/18/2024 8:53 AM EDT 10/18/2024 8:53 AM EDT Shaheen LEO LAB BLOOD ORDERABLES Final Res ult [facility] [address] [place] [address], [place] [phone] * (ABNORMAL) Lipid panel with reflex to direct LDL (10/18/2024 8:53 AM EDT) Pathologist [facility] Cholesterol 209(H) 0 - 200 mg/dL LAB CHEMISTRY METHOD 10/18/2024 3:28 PM EDT [facility] Triglycerides 94 0 - 150 mg/dL LAB CHEMISTRY METHOD 10/18/2024 3:28 PM T [facility] HDL 61 >=40 mg/dL LAB CHEMISTRY METHOD 10/18/2024 3:28 PM EDT [facility] LDL Calculated 129(H) 0 - 100 mg/dL LAB CHEMISTRY METHOD 10/18/2024 3:28 PM EDT [facility] VLDL Cholesterol Elliott 18.8 mg/dL LAB CHEMISTRY METHOD 10/18/2024 3:28 PM EDT [facility] Non HDL Chol. (LDL+VLDL) 148(H) <145 mg/dL LAB CHEMISTRY METHOD 10/18/2024 3:28 PM EDT [facility] Chol/HDL Ratio 3.4 0.0 - 4.4 LAB CHEMISTRY METHOD 10/18/2024 3:28 PM EDT [facility] Blood Venous blood specimen / Unknown Venipuncture / Unknown 10/18/2024 8:53 AM EDT 10/18/2024 8:53 AM EDT Shaheen LEO LAB BLOOD ORDERABLES Final Res ult Performing Organization Address [facility]/ZIP Co de Phone Number [facility] [address] [place] [address], [place] [phone] * Thyroid peroxidase and thyroglobulin antibodies (10/18/2024 8:53 AM EDT) Antithyroglobulin Ab 19.0 <=60.0 I Unit/mL LAB CHEMISTRY METHOD 10/18/2024 4:52 PM EDT [facility] Thyroid Peroxidase Ab 38.0 <=60.0 I Unit/mL LAB CHEMISTRY METHOD 10/18/2024 4:52 PM EDT [facility] Blood Venous blood specimen / Unknown Venipuncture / Unknown 10/18/2024 8:53 AM EDT 10/18/2024 8:53 AM EDT us Shaheen LEO LAB BLOOD ORDERABLES Final Res ult Performing Organization Address [facility]/ZIP Co de Phone Number [facility] [address] [place] [address], [place] [phone] * (ABNORMAL) CBC auto differential (10/18/2024 8:53 AM EDT) WBC 5.5 4.8 - 10.8 K/mcL LAB HEMETOLOGY METHOD 10/18/2024 1:07 PM EDT [facility] RBC 4.40 3.80 - 4.80 M/mcL LAB HEMETOLOGY METHOD 10/18/2024 1:07 PM EDT [facility] Hemoglobin 12.8 11.5 - 16.0 g/dL LAB HEMETOLOGY METHOD 10/18/2024 1:07 PM EDT [facility] Hematocrit 40.8 35.0 - 47.0 % LAB HEMETOLOGY METHOD 10/18/2024 1:07 PM [facility] MCV 93.6 79.0 - 98.0 FL LAB HEMETOLOGY METHOD 10/18/2024 1:07 PM [facility] MCH 29.4 27.0 - 32.0 pcg LAB HEMETOLOGY METHOD 10/18/2024 1:07 PM [facility] MCHC 31.4(L) 32.0 - 37.0 g/dL LAB HEMETOLOGY METHOD 10/18/2024 1:07 PM [facility] RDW 13.2 11.0 - 15.0 % LAB HEMETOLOGY METHOD 10/18/2024 1:07 PM [facility] Platelets 212 130 - 400 K/mcL LAB HEMETOLOGY METHOD 10/18/2024 1:07 PM [facility] MPV 10.4 7.0 - 11.0 FL LAB HEMETOLOGY METHOD 10/18/2024 1:07 PM [facility] NRBC 0.0 <1.0 % LAB HEMETOLOGY METHOD 10/18/2024 1:07 PM [facility] NRBC Absolute 0.00 <0.10 K/mcL LAB HEMETOLOGY METHOD 10/18/2024 1:07 PM [facility] Neutrophils Relative 53.4 % LAB HEMETOLOGY METHOD 10/18/2024 1:07 PM [facility] Lymphocytes Relative 37.2 % LAB HEMETOLOGY METHOD 10/18/2024 1:07 PM [facility] Monocytes Relative 6.4 % LAB HEMETOLOGY METHOD 10/18/2024 1:07 PM [facility] Eosinophils Relative 1.8 % LAB HEMETOLOGY METHOD 10/18/2024 1:07 PM EDT [facility] Basophils Relative 0.7 % LAB HEMETOLOGY METHOD 10/18/2024 1:07 PM EDT [facility] Immature Granulocytes Relative 0.5 % LAB HEMETOLOGY METHOD 10/18/2024 1:07 PM EDT [facility] Neutrophils Absolute 2.93 1.50 - 7.00 K/mcL LAB HEMETOLOGY METHOD 10/18/2024 1:07 PM EDT [facility] Lymphocytes Absolute 2.04 1.00 - 5.00 K/mcL LAB HEMETOLOGY METHOD 10/18/2024 1:07 PM EDT [facility] Monocytes Absolute 0.35 0.20 - 1.00 K/mcL LAB [facility]EM[facility]OLOGY [facility] Eosinophils Absolute 0.10 0.00 - 0.50 K/mcL LAB HEMETOLOGY METHOD 10/18/2024 1:07 PM EDT [facility] Basophils Absolute 0.04 0.00 - 0.20 K/mcL LAB HEMETOLOGY METHOD [facility] Immature Granulocytes Absolute 0.03 0.00 - 0.03 K/mcL LAB HEMETOLOGY METHOD 10/18/2024 1:07 PM [facility] Blood Venous blood specimen / Unknown Venipuncture / Unknown 10/18/2024 8:53 AM EDT 10/18/2024 8:53 AM EDT us Shaheen LEO LAB BLOOD ORDERABLES Final Res ult [facility] [address] [place] [address], * Comprehensive metabolic panel (10/18/2024 8:53 AM EDT) Sodium 140 133 - 145 mmol/L LAB CHEMISTRY METHOD 10/18/2024 3:28 PM [facility] Potassium 4.6 3.5 - 5.5 mmol/L LAB CHEMISTRY METHOD 10/18/2024 3:28 PM [facility] Chloride 107 96 - 110 mmol/L LAB CHEMISTRY METHOD 10/18/2024 3:28 PM [facility] CO2 26 21 - 32 mmol/L LAB CHEMISTRY METHOD 10/18/2024 3:28 PM [facility] Anion Gap 7 3 - 11 LAB CHEMISTRY METHOD 10/18/2024 3:28 PM [facility] Glucose 87 70 - 100 mg/dL LAB CHEMISTRY METHOD 10/18/2024 3:28 PM [facility] BUN 11 5 - 25 mg/dL LAB CHEMISTRY METHOD 10/18/2024 3:28 PM [facility] Creatinine 0.62 0.50 - 1.10 mg/dL LAB CHEMISTRY METHOD 10/18/2024 3:28 PM [facility] eGFR 99 >=60 mL/min/1. 73m2 LAB CHEMISTRY METHOD 10/18/2024 3:28 PM [facility] Comment:Calculation based on the Chronic Kidney Disease Epidemiology Collaboration (CKD-EPI) equation refit without adjustment for race. BUN/Creatinine Ratio 17.7 LAB CHEMISTRY METHOD 10/18/2024 3:28 PM [facility] Calcium 9.0 8.5 - 10.5 mg/dL LAB CHEMISTRY METHOD 10/18/2024 3:28 PM [facility] AST (SGOT) 18 10 - 42 unit/L LAB CHEMISTRY METHOD 10/18/2024 3:28 PM [facility] ALT (SGPT) 26 10 - 60 unit/L LAB CHEMISTRY METHOD 10/18/2024 3:28 PM [facility] Alkaline Phosphatase 62 42 - 121 unit/L LAB CHEMISTRY METHOD 10/18/2024 3:28 PM EDT [facility] Total Protein 6.9 6.0 - 8.0 g/dL LAB CHEMISTRY METHOD 10/18/2024 3:28 PM EDT [facility] Albumin 3.9 3.2 - 5.0 g/dL LAB CHEMISTRY METHOD 10/18/2024 3:28 PM EDT [facility] Total Bilirubin 0.4 0.0 - 1.4 mg/dL LAB CHEMISTRY METHOD 10/18/2024 3:28 PM EDT [facility] Blood Venous blood specimen / Unknown Venipuncture / Unknown 10/18/2024 8:53 AM EDT 10/18/2024 8:53 AM EDT Shaheen LEO LAB BLOOD ORDERABLES Final Res ult [facility] [address] [place] [address], * Colonoscopy (09/25/2023) [facility] Colonoscopy no interpretation , abstracted Anatomical Region Laterality Modality Other Historical Provider HEALTH MAINTENANCE Final Result * Hepatitis C Screening (03/07/2015) [facility] Hepatitis C Screening abstracted [facility] Provider HEALTH MAINTENANCE Final Result from Last 3 Months or Most Recently Relevant to Health Maintenance Insurance [facility] MEDICARE Care Teams Account Development Specialist Relationship Specialty Start Date End Date Simran Dominguez MD [address] [place] [id number] PCP - General 11/27/09
--- OUTSIDE RECORDS SUMMARY | 2024-11-09 11:59 | XMS_ITS | Clinical Summary ---
Author Organization [facility] Address [address] [place] [address] Care Team Providers Care Radiology Receptionist Name Role Phone Simran Dominguez MD Primary Care Pr ovider Allergies No known active allergies Medications cyclobenzaprine (FLEXERIL) 5 MG tablet TAKE 1 TABLET BY MOUTH THREE TIMES DAILY FOR 3 DAYS NEEDED FOR MUSCLE SPASM 07/19/2023 Active ibuprofen (MOTRIN) 600 MG tablet TAKE 1 TABLET BY MOUTH FOUR TIMES DAILY FOR 5 DAYS 07/19/2023 Active lisinopril (PRINIVIL,ZeSTR IL) 30 MG tablet Take 30 mg by mouth daily. 07/08/2023 Active SUMAtriptan (IMITREX) 25 MG tablet Take 25 mg by mouth once as needed for migraine. May repeat in 2 hours if unresolved. Do not exceed 200 mg in 24 hours. Active phenazopyridine (PYRIDIUM) 200 MG tabletIndicatio ns:Urinary tract infection symptoms Take 1 tablet (200 mg total) by mouth 3 (three) times a day as needed for bladder spasms. 6 tablet 04/13/2024 Active Active Problems No known active problems Social History Tobacco Use Types Packs/Day Years Used Date Smoking Tobacco: Never Smokeless Tobacco: Never Alcohol Use Standard Drinks/Week Comments Yes 0 (1 standard drink = 0.6 oz pur e alcohol) Comments Unknown Sex and Gender Information Value Date Recorded Sex Assigned at Not on file Legal Sex Female 7:02 PM EST Gender Identity Not on file Sexual Orientation Not on file Last Filed Vital Signs Vital Sign Reading Time Taken Comments Blood Pressure 136/81 04/13/2024 10:31 AM EST Pulse 77 04/13/2024 10:31 AM EST Temperature 36.4 C (97.6 F) 04/13/2024 10:31 AM EST Respiratory Rate 16 07/21/2023 12:07 PM EDT Oxygen Saturation 96% 04/13/2024 10:31 AM EST Inhaled Oxygen Concentration - - Weight 80.7 kg (178 lb) 07/21/2023 12:07 PM EDT Height 165.1 cm (5' 5 ) 07/21/2023 12:07 PM EDT Body Mass Index 29.62 07/21/2023 12:07 PM EDT Plan of Treatment Health Maintenance Due Date Last Done Comments Hepatitis C Virus Screening 1960 HIV Screening 10/06/1972 DTaP/Tdap/Td Vaccines (1 - Tdap) 10/06/1978 Pap Smear (Ages 21-65) 10/06/1980 Mammogram 1999 Colonoscopy 10/06/2004 Pneumococcal Vaccines 50+ (1 of 1 - PCV) 10/06/2009 Zoster (Shingles) Vaccine (1 of 2) 10/06/2009 COVID-19 Vaccine ( - 2023-2 5 season) 2024 DXA Bone Density (Females,Ag es 65 and older) 10/06/2024 Influenza Vaccine 12/03/2024 RSV Vaccine 60 years and old er and Patients (1 - 1-dose 75+ series) 10/06/2034 Hepatitis B Vaccines Aged Out No long er eligible based on patient's age to complete this topic Insurance [facility] [place] Teams Radiology Receptionist Relationship Specialty Start Date End Date Simran Dominguez MD PCP - General Internal Medicine 07/21/23
== END 2024-11-09 10:56 | disposition home or self-care (01) ==
LOC: HO.MRI 10:55
PROVIDERS: PCP Internal Medicine; Visit Provider Physician Assistant
DX: M54.16 Radiculopathy, lumbar region (principal)
CPT/HCPCS: 72158; A9585